=== PATIENT | female | born 1960 | race Caucasian/White ===

== ENCOUNTER 2023-10-02 11:44 | Day surgery (SDC) | payer OTHER ==
[2023-10-02] MEDS ORDERED: Decadron 4 MG INJ IV ONE (11:45)
[2023-10-02] MEDS ORDERED: Xylocaine-Mpf 2% 5 Ml Vial IJ ONE (11:45)
[2023-10-02] MEDS ORDERED: Lactated Ringers 1,000 ML IV ONE (13:15)
[2023-10-02] MEDS ORDERED: DIPRIVAN 200 MG/20 ML IV ONE (13:52)
--- NOTE | 2023-10-02 16:35 | XRAY ---
Indication: Left C2-C4 MBB. Intraoperative fluoroscopy provided for 21 seconds. 2 digital spot image submitted for interpretation demonstrates posterior needle tips projecting over the expected left C2-C4 nerve roots. Correlate with intraoperative findings/report.
--- NOTE | 2023-10-02 20:09 | XRAY ---
21 seconds of fluoroscopy was used in surgery for a left C2-C4 MBB.
== END 2023-10-02 14:30 ==
LOC: SDC-PAIN 11:44
PROVIDERS: ATTEND Psychiatry & Neurology Pain Medicine
DX: M47.812 Spondylosis without myelopathy or radiculopathy, cervical region (principal)
CPT/HCPCS: 64490; 64491; 72040; 77002; J1100; J2704

== ENCOUNTER 2023-10-30 11:58 | Day surgery (SDC) | payer OTHER ==
[2023-10-30] MEDS ORDERED: BUPIVACAINE 0.5% VIAL IJ ONE (11:59)
[2023-10-30] MEDS ORDERED: Decadron 4 MG INJ IV ONE (11:59)
[2023-10-30] MEDS ORDERED: Lactated Ringers 1,000 ML IV ONE (13:50)
[2023-10-30] MEDS ORDERED: DIPRIVAN 200 MG/20 ML IV ONE (13:52)
--- NOTE | 2023-10-30 19:55 | XRAY ---
Indication: Left C2-C4 MBB Intraoperative fluoroscopy provided for 22 seconds. 2 digital spot image submitted for interpretation demonstrates posterior needle tips projecting over the expected left C2-C4 nerve roots. Correlate with intraoperative findings/report.
--- NOTE | 2023-10-30 20:21 | XRAY ---
22 seconds of fluoroscopy was used in surgery for a left C2-C4 MBB.
== END 2023-10-30 14:25 ==
LOC: SDC-PAIN 11:58
PROVIDERS: ATTEND Psychiatry & Neurology Pain Medicine
DX: M47.812 Spondylosis without myelopathy or radiculopathy, cervical region (principal)
CPT/HCPCS: 64490; 64491; 72040; 77002; J1100; J2704

== ENCOUNTER 2023-12-18 14:18 | Day surgery (SDC) | payer OTHER ==
[2023-12-18] MEDS ORDERED: BUPIVACAINE 0.5% VIAL IJ ONE (14:19)
[2023-12-18] MEDS ORDERED: Decadron 4 MG INJ IV ONE (14:19)
[2023-12-18] MEDS ORDERED: LIDOCAINE HCL 1% AMPUL 5 ML IJ ONE (14:19)
[2023-12-18] MEDS ORDERED: DIPRIVAN 200 MG/20 ML IV ONE ×2 (15:55→16:04)
--- NOTE | 2023-12-18 17:20 | XRAY ---
Indication: Left C2-C4 RFA. Intraoperative fluoroscopy provided for 15 seconds. 3 digital spot image submitted for interpretation demonstrates posterior needle tips projecting over the expected left C2-C4 nerve roots. Correlate with intraoperative findings/report.
--- NOTE | 2023-12-19 08:47 | XRAY ---
15 seconds of fluoroscopy was used in surgery for a left C2-C4 RFA.
== END 2023-12-18 16:30 | disposition home or self-care (01) ==
LOC: SDC-PAIN 14:18
PROVIDERS: ATTEND Psychiatry & Neurology Pain Medicine
DX: M47.812 Spondylosis without myelopathy or radiculopathy, cervical region (principal)
CPT/HCPCS: 72040; 77002; J1100; J2704

== ENCOUNTER 2024-01-28 09:03 | Day surgery (SDC) | payer OTHER ==
[~2024-01-28 09:03] MED LIST: BETADINE 5% OPHTHALMIC 30 ML OP ONE; Sodium Chloride 0.9% 10 ML FLUSH Syringe IJ ONE; TRIAMCINOLONE 15 MG/ML INJ INTRAOP ONE; VIGAMOX/BSS 0.15% SYR IO ONE
[2024-01-28 09:14] VITALS: RESP 18; TEMP 97.6
[2024-01-28] MEDS: TETRACAINE 0.5% STERI-UNIT SOL OP ONE ×2 (09:30→10:01)
[2024-01-28] MEDS: Ak-Dilate OPHTHALMIC*** 1.065 ML, Cyclogyl 1% OPHTH SOL 1.065 ML, GATIFLOXACIN 0.5% OPH... OP ONE (09:31)
[2024-01-28 09:42] LABS: Absolute Neutrophil Ct (ANC) 2.69 x10^3/uL (1.56-6.13); BASOPHIL % 0.8 % (0.1-1.2); Basophil (Absolute #) 0.04 x10^3/uL (0.01-0.08); Hematocrit 37.8 % (34.1-44.9); Hemoglobin 12.1 g/dL (11.2-15.7); IMMATURE GRAN # 0.01 x10^3u/L (0.001-0.031); IMMATURE GRAN % 0.2 % (0.001-0.429); Lymphocyte (Absolute #) 1.62 x10^3/uL (1.18-3.74); Lymphocytes % 32.3 % (19.3-51.7); Mean Cell Volume 97.4 fL (79.4-94.8); Mean Corpuscular Hemoglobin 31.2 pg (25.6-32.2); Mean Platelet Volume 10.1 fL (9.4-12.3); Monocyte (Absolute #) 0.45 x10^3/uL (0.24-0.86); Neutrophil % 53.7 % (34.0-71.1); Platelet Count 294 x10^3/uL (182-369); Red Blood Count 3.88 x10^6/uL (3.93-5.22); Red Cell Distribution Width 14.4 % (11.7-14.4)
[2024-01-28 09:56] LABS: ANION GAP 12.7 MEQ/L (5-15); Calcium 9.4 mg/dL (8.4-10.2); Creatinine 1 1.05 mg/dL (0.52-1.04); Potassium 4.1 mmol/L (3.5-5.1)
[2024-01-28] MEDS ORDERED: Epinephrine Preservative Free 1 MG/ML IJ ONE (11:00)
[2024-01-28] MEDS ORDERED: Zofran 4 MG/2 ML VIAL IV PRN (11:00)
[2024-01-28] MEDS ORDERED: DIPRIVAN 200 MG/20 ML IV ONE (11:40)
[2024-01-28] MEDS ORDERED: DEXMEDETOMIDINE 80 MCG/20ML-NS IV ONE (11:40)
[2024-01-28 12:15] VITALS: BP 149/98; PULSE 60; O2SAT 97
== END 2024-01-28 12:24 | disposition home or self-care (01) ==
LOC: SDC 09:03
PROVIDERS: ATTEND Ophthalmology
DX: H25.812 Combined forms of age-related cataract, left eye (principal); I10 Essential (primary) hypertension
CPT/HCPCS: 36415; 80048; 85025; 93005; C1780; J0171; J2704; A9270-GY

== ENCOUNTER 2024-06-17 14:53 | Day surgery (SDC) | payer MEDICARE, OTHER ==
[2024-06-17] MEDS ORDERED: methylPREDNISolone acetate IM ONE (14:54)
[2024-06-17] MEDS ORDERED: LIDOCAINE HCL 1% 50 MG/5 ML VL IJ ONE (14:54)
[2024-06-17] MEDS ORDERED: BUPIVACAINE 0.5% VIAL IJ ONE (14:54)
--- NOTE | 2024-06-17 20:04 | XRAY ---
Indication: Right hip greater trochanter bursa injection. Intraoperative fluoroscopy provided for 14 seconds. Single digital spot image submitted for interpretation demonstrates needle tips projecting lateral to right greater trochanter. Small amount of contrast injected for needle tip placement. Correlate with intraoperative findings/report.
--- NOTE | 2024-06-18 08:52 | XRAY ---
14 seconds of fluoroscopy was used in surgery for a right greater trochanteric bursa injection.
== END 2024-06-17 17:38 | disposition home or self-care (01) ==
LOC: SDC-PAIN 14:53
PROVIDERS: ATTEND Psychiatry & Neurology Pain Medicine
DX: M70.61 Trochanteric bursitis, right hip (principal)
CPT/HCPCS: 20550; 20610; 73501; 77002; J1010; Q9966

== ENCOUNTER 2024-12-24 14:17 | Day surgery (SDC) | payer MEDICARE, OTHER ==
[2024-12-24] MEDS ORDERED: BUPIVACAINE 0.5% VIAL IJ ONE (14:18)
[2024-12-24] MEDS ORDERED: LIDOCAINE HCL 1% 50 MG/5 ML VL IJ ONE (14:18)
[2024-12-24] MEDS ORDERED: methylPREDNISolone acetate IM ONE (14:18)
--- NOTE | 2024-12-24 17:36 | XRAY ---
Indication: Bilateral greater trochanter bursa injection. Intraoperative fluoroscopy provided for 27 seconds. 2 digital spot image submitted for interpretation demonstrates needle tips projecting lateral to left and right greater trochanters. Small amount of contrast injected for both needle tip placement. Correlate with intraoperative findings/report.
--- NOTE | 2024-12-25 12:03 | XRAY ---
27 seconds of fluoroscopy was used in surgery for a bilateral greater trochanteric bursa injection.
== END 2024-12-24 16:25 | disposition home or self-care (01) ==
LOC: SDC-PAIN 14:17
PROVIDERS: ATTEND Psychiatry & Neurology Pain Medicine
DX: M70.61 Trochanteric bursitis, right hip (principal)